=== PATIENT | male | born 1955 | race Caucasian/White ===

== ENCOUNTER 2022-01-01 12:24 | Outpatient (CLI) | payer MEDICARE, OTHER, SELFPAY ==
--- NOTE | 2022-01-01 14:47 | XR_ITS ---
WS: [id number] XR hip RT 2-3V wo/w pel* [id number] REASON FOR EXAM: M25.551 - Pain in right hip FINDINGS: No fracture or focal bone lesion. Moderate narrowing of the joint space with moderate subchondral sclerosis and osteophytosis of the ac etabulum. No soft tissue abnormality. XR/XR hip RT 2-3V wo/w pel* [id number] IMPRESSION: Moderate osteoarthritis of the right hip.
== END 2022-01-01 12:25 | disposition home or self-care (01) ==
LOC: LAB 12:25
PROVIDERS: PCP Registered Nurse; Visit Provider Registered Nurse
DX: Z13.6 Encounter for screening for cardiovascular disorders (principal); M16.11 Unilateral primary osteoarthritis, right hip; Z85.46 Personal history of malignant neoplasm of prostate
CPT/HCPCS: 73502; 80053; 80061; 81000; 84153; 85025

== ENCOUNTER → 2023-09-14 09:20 | Outpatient (BNVA) | payer MEDICARE, SELFPAY | PROVIDERS: PCP Registered Nurse; Visit Provider Nurse Practitioner Family | DX: C61 Malignant neoplasm of prostate (principal); Z12.11 Encounter for screening for malignant neoplasm of colon; K57.92 Diverticulitis of intestine, part unspecified, without perforation or abscess without bleeding; Z12.5 Encounter for screening for malignant neoplasm of prostate | CPT/HCPCS: 80053; 81003; 85025; G0103 ==

== ENCOUNTER → 2023-09-21 15:47 | Outpatient (BNVA) | payer MEDICARE, SELFPAY | PROVIDERS: PCP Registered Nurse; Visit Provider Nurse Practitioner Family | DX: R31.9 Hematuria, unspecified (principal) | CPT/HCPCS: 81000 ==

== ENCOUNTER → 2024-04-28 14:29 | Outpatient (BNVA) | payer MEDICARE, SELFPAY | PROVIDERS: PCP Registered Nurse; Visit Provider Nurse Practitioner Family | DX: M25.551 Pain in right hip (principal); M16.11 Unilateral primary osteoarthritis, right hip; M16.9 Osteoarthritis of hip, unspecified | CPT/HCPCS: 73502 ==

== ENCOUNTER → 2024-12-01 13:38 | Outpatient (BNVA) | payer MEDICARE, SELFPAY | PROVIDERS: PCP Registered Nurse; Visit Provider Emergency Medicine | DX: M25.761 Osteophyte, right knee (principal) | CPT/HCPCS: 73562 ==

== ENCOUNTER → 2024-12-11 09:12 | Outpatient (BNVA) | payer MEDICARE, SELFPAY | PROVIDERS: PCP Registered Nurse; Visit Provider Nurse Practitioner Family | DX: Z79.899 Other long term (current) drug therapy (principal); E55.9 Vitamin D deficiency, unspecified; Z12.5 Encounter for screening for malignant neoplasm of prostate | CPT/HCPCS: 80053; 80061; 81003; 82306; 83036; 84443; 85025; G0103 ==

== ENCOUNTER 2024-12-12 05:00 | Outpatient (RCR) | payer MEDICARE, SELFPAY | END 2025-01-11 23:59 | disposition home or self-care (01) | LOC: WPT 05:00 | PROVIDERS: PCP Registered Nurse; Visit Provider Nurse Practitioner Family | DX: M25.551 Pain in right hip (principal); M25.561 Pain in right knee; G89.29 Other chronic pain | CPT/HCPCS: 97110; 97112; 97161; 97530 ==

== ENCOUNTER 2025-01-12 06:30 | Outpatient (RCR) | payer MEDICARE, SELFPAY | END 2025-01-24 09:22 | disposition home or self-care (01) | LOC: WPT 06:30 | PROVIDERS: PCP Registered Nurse; Visit Provider Nurse Practitioner Family | DX: M25.551 Pain in right hip (principal); M25.561 Pain in right knee; G89.29 Other chronic pain | CPT/HCPCS: 97110; 97112; 97530 ==

== ENCOUNTER → 2025-05-04 11:41 | Outpatient (BNVA) | payer MEDICARE, OTHER, SELFPAY | PROVIDERS: PCP Registered Nurse; Visit Provider Nurse Practitioner Family | DX: R31.9 Hematuria, unspecified (principal); Z79.899 Other long term (current) drug therapy | CPT/HCPCS: 81003; 87086 ==

== ENCOUNTER → 2025-05-08 15:31 | Outpatient (BNVA) | payer MEDICARE, OTHER, SELFPAY | PROVIDERS: PCP Registered Nurse; Visit Provider Nurse Practitioner Family | DX: R31.9 Hematuria, unspecified (principal); Z79.899 Other long term (current) drug therapy | CPT/HCPCS: 81003; 87086 ==